=== PATIENT | female | born 1975 | race Caucasian/White ===

== ENCOUNTER 2018-08-09 17:50 | Emergency (ER) | payer MEDICAID ==
[~2018-08-09] VITALS: Ht 167.6 cm; Wt 71.8 kg
[2018-08-09 17:54] VITALS: BP 132/71
--- NOTE | 2018-08-09 18:06 | NUR ---
43 Y FEMALE BIB SELF C/O LEFT ARM PAIN X1 WEEK. PT REPORTS THROBBING PAIN THAT STARTS IN WRIST AND GOES UP ARM AT 10/10. PT TREATED WITH IBUPROFEN WITH SOME RELIEF. PT DENIES TRUAMA, NO SWELLING, NO DEFORMITY. +CMS. DENIES CP, SOB, N/V/D, FEVER. VSS AT THIS TIME. [id number]. BED IS DOWN, LOCKED, BED RAIL X 1, ERMD NOTIFIED. MEDHX:DENIES RX;IBUPROFEN
[2018-08-09] MEDS ORDERED: KETOROLAC 60 MG/2 ML VIAL IM ONE (18:20)
[2018-08-09 19:07] VITALS: BP 128/70
== END 2018-08-09 19:07 | disposition home or self-care (01) ==
LOC: MED 17:50
DX: M79.602 Pain in left arm (principal); M25.532 Pain in left wrist
CPT/HCPCS: 81002; 81025; 96372; 99283; J1885

== ENCOUNTER 2019-03-24 16:49 | Emergency (ER) | payer OTHER ==
[~2019-03-24] VITALS: Ht 165.1 cm; Wt 75.7 kg
[2019-03-24 16:54] VITALS: BP 132/83
--- NOTE | 2019-03-24 16:59 | NUR ---
PT AMBULATED TO BED 11
--- NOTE | 2019-03-24 17:00 | NUR ---
44/F C/O BILATERAL EAR PAIN X 4 DAYS. STATES PAIN FEELS DEEP IN EARS. DENIES ANY OTHER FLU LIKE SYMPTOMS DENIES DIZZINESS, RINGING IN EARS. ALLERGIES: NKA MED HX: NONE
--- NOTE | 2019-03-24 17:34 | NUR ---
Patient discharged with v/s stable. Written and verbal after care instructions given and explained. Patient alert, oriented and verbalized understanding of instructions. Ambulatory with steady gait. All questions addressed prior to discharge BY DR. COELLO AND PT D/C BY DR. COELLO. ID band removed. Patient advised to follow up with PMD. Rx of FLONASE given. Patient educated on indication of medication including possible reaction and side effects. Opportunity to ask questions provided and answered.
[2019-03-24 17:46] VITALS: BP 132/83
== END 2019-03-24 17:34 | disposition home or self-care (01) ==
LOC: MED 16:49
DX: T70.0XXA Otitic barotrauma, initial encounter (principal); X58.XXXA Exposure to other specified factors, initial encounter
CPT/HCPCS: 99283